=== PATIENT | female | born 1965 | race Caucasian/White ===

== ENCOUNTER 2025-03-27 18:35 | Inpatient (IN) ==
[2025-03-27] MEDS ORDERED: IOPAMIDOL 100 ML BOTTLE IV ONE (18:36)
[2025-03-27 19:09] LABS: Basophils # (Auto) 0.02 K/mcL (0.00-0.30); Basophils % (Auto) 0.3 % (0.0-2.0); Eosinophils # (Auto) 0.16 K/mcL (0.00-0.70); Eosinophils % (Auto) 2.1 % (0.0-7.0); Hematocrit 40.5 % (34.1-44.9); Hemoglobin 13.8 g/dL (11.2-15.7); Lymphocytes # (Auto) 2.45 K/mcL (1.50-4.80); Lymphocytes % (Auto) 32.3 % (15.5-49.0); Mean Cell Volume 90.2 fL (80.0-100.0); Mean Corpuscular HGB Conc 34.1 g/dL (31.0-36.0); Mean Platelet Volume 11.2 fL (8.8-12.5); Monocytes # (Auto) 0.77 K/mcL (0.10-0.90); Monocytes % (Auto) 10.2 % (1.0-12.0); Neutrophils % (Auto) 55.1 % (38.0-78.0); Platelet Count 187 K/mcL (140-440); RBC 4.49 M/mcL (3.59-5.38); Red Cell Distribution Width 11.5 % (11.5-14.5); WBC 7.6 K/mcL (4.5-11.0)
[2025-03-27 19:32] LABS: ALT/SGPT 32 U/L (<40); AST/SGOT 29 U/L (<32); Albumin 4.3 gm/dL (3.2-5.2); Albumin/Globulin Ratio 2.9 (1.0-2.3); Alkaline Phosphatase 70 U/L (39-117); Bilirubin,Total 0.4 mg/dL (0.1-1.0); Blood Urea Nitrogen 12 mg/dL (8-23); Calcium 9.4 mg/dL (8.6-10.4); Carbon Dioxide 28 mmol/L (22-30); Chloride 104 mmol/L (96-108); Globulin 1.5 gm/dL (2.2-3.7); Glomerular Filtration Rate 93; Glucose 84 mg/dL (70-105); Potassium 3.5 mmol/L (3.3-5.1); Sodium 142 mmol/L (133-145)
[2025-03-27] MEDS: morphine 4 MG/ML VIAL IV ONE (19:40)
[2025-03-27] MEDS: 0.9 % SODIUM CHLORIDE 1,000 ML IV ONE (19:40)
[2025-03-27] MEDS: ONDANSETRON 4 MG/2 ML VIAL IV ONE (19:41)
[2025-03-27 21:05] LABS: Appearance,Urine Clear (Clear); Bilirubin,Urine Negative (Negative); Color,Urine Yellow; Glucose,Urine (UA) Negative (Negative); Ketones,Urine Negative (Negative); Leukocyte Esterase,Urine Negative /uL (Negative); Nitrate,Urine Negative (Negative); Protein,Urine Negative (Negative); Urine Blood Negative ery/mcL (Negative); Urobilinogen,Urine Normal
[2025-03-27] MEDS: PIPERACILLIN SODIUM/TAZOBACTAM 3.375 GM in DEXTROSE 5% IN WATER 50 ML IV ONE (21:21)
[2025-03-27] MEDS ORDERED: ACETAMINOPHEN 325 MG TABLET PO PRN (21:29)
[2025-03-27] MEDS: morphine 2 MG/ML VIAL IV PRN (22:42)
[2025-03-28] MEDS: PIPERACILLIN SODIUM/TAZOBACTAM 3.375 GM in DEXTROSE 5% IN WATER 100 ML IV SCH (05:12)
[2025-03-28] MEDS: oxyCODONE/APAP 5/325MG TABLET PO PRN (05:16)
[2025-03-28] MEDS: ONDANSETRON 4 MG/2 ML VIAL IV PRN (09:04)
[2025-03-28] MEDS: IPRATROPIUM/ALBUTEROL 3 ML AMPUL.NEB NEB SCH (19:42)
[2025-03-28] MEDS: BREZTRI INH SCH (21:19)
[2025-03-29 06:48] LABS: Basophils # (Auto) 0.02 K/mcL (0.00-0.30); Basophils % (Auto) 0.4 % (0.0-2.0); Eosinophils # (Auto) 0.19 K/mcL (0.00-0.70); Eosinophils % (Auto) 3.5 % (0.0-7.0); Erythrocyte Sedimentation Rate <=1 mm/hr (0-30); Hematocrit 38.6 % (34.1-44.9); Hemoglobin 13.1 g/dL (11.2-15.7); Lymphocytes # (Auto) 1.39 K/mcL (1.50-4.80); Lymphocytes % (Auto) 25.6 % (15.5-49.0); Mean Cell Volume 91.5 fL (80.0-100.0); Mean Corpuscular HGB Conc 33.9 g/dL (31.0-36.0); Mean Platelet Volume 11.7 fL (8.8-12.5); Monocytes # (Auto) 0.58 K/mcL (0.10-0.90); Monocytes % (Auto) 10.7 % (1.0-12.0); Neutrophils % (Auto) 59.8 % (38.0-78.0); Platelet Count 167 K/mcL (140-440); RBC 4.22 M/mcL (3.59-5.38); Red Cell Distribution Width 11.4 % (11.5-14.5); WBC 5.4 K/mcL (4.5-11.0)
[2025-03-29 07:21] LABS: ALT/SGPT 28 U/L (<40); AST/SGOT 26 U/L (<32); Albumin 3.8 gm/dL (3.2-5.2); Albumin/Globulin Ratio 3.5 (1.0-2.3); Alkaline Phosphatase 58 U/L (39-117); Bilirubin,Direct 0.2 mg/dL (<0.3); Bilirubin,Total 0.5 mg/dL (0.1-1.0); Blood Urea Nitrogen 5 mg/dL (8-23); Carbon Dioxide 31 mmol/L (22-30); Chloride 103 mmol/L (96-108); Globulin 1.1 gm/dL (2.2-3.7); Glomerular Filtration Rate 93; Glucose 91 mg/dL (70-105); Lactate Dehydrogenase 151 U/L (135-225); Phosphorous 3.8 mg/dL (2.5-4.5); Potassium 4.3 mmol/L (3.3-5.1); Sodium 141 mmol/L (133-145); Triglycerides 124 mg/dL (<150); Uric Acid 2.7 mg/dL (2.5-8.0)
[2025-03-31] MEDS ORDERED: IOPAMIDOL 100 ML BOTTLE IV ONE (08:58)
== END 2025-03-31 15:31 | disposition home or self-care (01) | DRG 392 ==
LOC: ED 18:35 → MEDSUR 18:35
PROVIDERS: ADMIT Family Medicine Adult Medicine; ATTEND Family Medicine Adult Medicine